=== PATIENT | female | born 1990 | race Two or more races ===

== ENCOUNTER 2021-12-09 17:43 | Emergency (ER) | payer OTHER ==
[~2021-12-09] VITALS: Ht 152.4 cm; Wt 52.2 kg
== END 2021-12-09 22:30 | disposition home or self-care (01) ==
LOC: ER 17:43
DX: O20.9 Hemorrhage in early pregnancy, unspecified (principal); Z3A.08 8 weeks gestation of pregnancy

== ENCOUNTER 2022-01-17 11:51 | Emergency (ER) | payer OTHER ==
[~2022-01-17] VITALS: Ht 157.5 cm; Wt 49.0 kg
== END 2022-01-17 16:01 | disposition home or self-care (01) ==
LOC: ER 11:51
DX: O20.9 Hemorrhage in early pregnancy, unspecified (principal); Z3A.14 14 weeks gestation of pregnancy

== ENCOUNTER 2022-01-20 18:47 | Inpatient (IN) | payer OTHER ==
[~2022-01-20] VITALS: Ht 157.5 cm; Wt 45.4 kg
== END 2022-01-22 13:19 | disposition home or self-care (01) | DRG 833 ==
LOC: OB/GYN 18:47
PROVIDERS: ADMIT Obstetrics & Gynecology; ATTEND Obstetrics & Gynecology
PROC: 4A1HXCZ Monitoring of Products of Conception, Cardiac Rate, External Approach (ICD-10-PCS; principal; 2022-01-20)
DX: O26.892 Other specified pregnancy related conditions, second trimester (principal); E86.0 Dehydration; Z3A.14 14 weeks gestation of pregnancy; Z20.822 Contact with and (suspected) exposure to COVID-19

== ENCOUNTER 2022-05-27 13:54 | Outpatient (CLI) | payer OTHER | END 2022-05-27 15:25 | disposition home or self-care (01) | LOC: NST 13:54 | PROVIDERS: ATTEND Obstetrics & Gynecology Gynecology | DX: Z34.83 Encounter for supervision of other normal pregnancy, third trimester (principal) ==

== ENCOUNTER 2022-06-09 12:38 | Outpatient (CLI) | payer OTHER | END 2022-06-09 13:21 | disposition home or self-care (01) | LOC: NST 12:38 | PROVIDERS: ATTEND Obstetrics & Gynecology Gynecology | DX: Z34.83 Encounter for supervision of other normal pregnancy, third trimester (principal) ==

== ENCOUNTER 2022-07-07 14:00 | Inpatient (IN) | payer OTHER ==
[~2022-07-07] VITALS: Ht 157.5 cm; Wt 54.9 kg
[2022-07-20] MEDS ORDERED: PRENATAL TABLE1 EAC3 PO (07:47)
[2022-07-20] MEDS ORDERED: COLACE100 MG PO (07:48)
== END 2022-07-22 13:27 | disposition home or self-care (01) | DRG 807 ==
LOC: LDR 07-20 05:26 → OB/GYN 07-20 05:26
PROVIDERS: ADMIT Obstetrics & Gynecology; ATTEND Obstetrics & Gynecology
PROC: 10E0XZZ Delivery of Products of Conception, External Approach (ICD-10-PCS; principal; 2022-07-20)
PROC: 0W8NXZZ Division of Female Perineum, External Approach (ICD-10-PCS; 2022-07-20)
PROC: 4A1HXCZ Monitoring of Products of Conception, Cardiac Rate, External Approach (ICD-10-PCS; 2022-07-20)
DX: O80 Encounter for full-term uncomplicated delivery (principal); Z37.0 Single live birth; Z3A.39 39 weeks gestation of pregnancy; Z20.822 Contact with and (suspected) exposure to COVID-19

== ENCOUNTER 2022-07-13 10:40 | Outpatient (CLI) | payer OTHER | END 2022-07-13 12:13 | disposition home or self-care (01) | LOC: NST 10:40 | PROVIDERS: ATTEND Obstetrics & Gynecology Gynecology | DX: Z34.83 Encounter for supervision of other normal pregnancy, third trimester (principal) ==